=== PATIENT | female | born 1970 | race Two or more races ===

== ENCOUNTER 2016-12-12 07:50 | Emergency (ER) | payer SELFPAY ==
[~2016-12-12 07:50] MED LIST: ACET325T9 PO; NITR100C62 PO; ONDA4TAB10 SL; PNV1TABL25 PO; POTA10CA PO
--- NOTE | 2016-12-12 08:14 | PHYS DOC ---
Past Medical History Past Medical History: Diabetes-Type II, Hypertension Past Surgical History: Alcohol Use: None Drug Use: None Adult General Chief Complaint Chief Complaint: MULTIPLE COMPLAINTS [facility] HPI Patient is a 46 year old female presents emergency Department today with a complaint of generalized weakness, lightheadedness, headache and feeling as if she may pass out. Patient states this is been going on for the past 3 days. She also complains of a cough with chest wall pain when she coughs. She denies a productive cough or hemoptysis. She denies resting chest pain, exertional pain, palpitations, orthopnea or PND. She denies fevers or chills. She denies nausea, vomiting or diarrhea. Patient denies history of chronic headaches. She denies exposure to anyone with meningitis or encephalitis. She does have a history of hypertension and diabetes. She states that she does take medication at home for these, but does not check her blood sugar daily. [facility] for periodic checkup. She denies concerns for at this time. Last menstrual cycle was approximately 2 weeks ago. She denies dysuria, hematuria or flank pain. Information was gathered by patient who speaks broken Cook Islander as well as a female sql ssrs ssis developer who translates. Review of Systems Review of Systems Constitutional: Denies fever or chills [] Eyes: Denies change in visual acuity, redness, or eye pain [] HENT: Denies nasal congestion or sore throat [] Respiratory: Denies cough or shortness of breath [] Cardiovascular: No additional information not addressed in [facility] [] GI: Denies abdominal pain, nausea, vomiting, bloody stools or diarrhea [] : Denies dysuria or hematuria [] Musculoskeletal: Denies back pain or joint pain [] Integument: Denies rash or skin lesions [] Neurologic: Denies headache, focal weakness or sensory changes [] Endocrine: Denies polyuria or polydipsia [] Current Medications Current Medications Current Medications Medications (Trade) Dose Ordered Sig/Jessica Start Time Stop Time Status Last Admin Dose Admin Fentanyl Citrate (Fentanyl 2ml Vial) 50 mcg 1X ONCE 12/12/16 09:45 12/12/16 09:46 DC 12/12/16 10:19 50 MCG Hydralazine HCl (Apresoline) 10 mg 1X ONCE 12/12/16 08:30 12/12/16 08:31 DC 12/12/16 08:48 10 MG Ondansetron HCl (Zofran) 4 mg 1X ONCE 12/12/16 09:15 12/12/16 09:20 DC 12/12/16 09:22 4 MG Sodium Chloride (Iv Sodium Chloride 0.9% 500ml Bag) 500 ml @ 500 mls/hr 1X ONCE 12/12/16 08:15 12/12/16 09:14 DC 12/12/16 08:15 250 MLS/HR Sodium Chloride 10 ml 10 ml QSHIFT PRN 12/12/16 08:15 Allergies Allergies Allergies Coded Allergies Type Severity Reaction Last Updated Verified No Known Drug Allergies 02/24/14 No Physical Exam Physical Exam Constitutional: Patient is sitting in a high semi-Fowlers position no acute distress. Patient is hypertensive with a systolic pressure of 205. HENT: Normocephalic, atraumatic, bilateral external ears normal, oropharynx moist, no oral exudates, nose normal. Eyes: PERRLA, EOMI, conjunctiva normal, no discharge. [] Neck: Normal range of motion, no tenderness, supple, no stridor. Brudzinski's is negative. There is no cervical lymphadenopathy. Cardiovascular:Heart rate 68 with regular rhythm, no murmur Lungs & Thorax: There is no evidence of respiratory distress or respiratory fatigue. There is no posturing or sensory muscle use. Lungs are clear to auscultation bilaterally. Abdomen: Abdomen is soft and nondistended. There are normoactive bowel sounds throughout the abdomen. There is no palpable defect to the abdominal wall or pulsatile mass. There is no rebound or guarding. Skin: Warm, dry, no erythema, no rash. [] Back: No tenderness, no CVA tenderness. [] Extremities: No tenderness, no cyanosis, no clubbing, ROM intact, no edema. [] Neurologic: Alert and oriented X 3, cranial nerves II through XII are intact. Patient is able to perform rapid alternating movement and [id number] without difficulty. Romberg is negative for pronator drift. Patient ambulates with a steady, unaided gait. Psychologic: Affect normal, judgement normal, mood normal. [] Current Patient Data Vital Signs Vital Signs Date Time Temp Pulse Resp B/P Pulse Ox O2 Delivery O2 Flow Rate FiO2 12/12/16 10:19 18 97 Room Air 12/12/16 09:12 83 223/118 12/12/16 08:03 98.4 98.4 Lab Values Laboratory Tests Test 12/12/16 08:35 12/12/16 09:28 12/12/16 10:08 White Blood Count 8.6x10^3/uL (4.0-11.0) Red Blood Count 4.58x10^6/uL (3.50-5.40) Hemoglobin 11.7g/dL (12.0-15.5) L Hematocrit 36.2% (36.0-47.0) Mean Corpuscular Volume 79fL (79-100) Mean Corpuscular Hemoglobin 26pg (25-35) Mean Corpuscular Hemoglobin Concent 32g/dL (31-37) Red Cell Distribution Width 15.7% (11.5-14.5) H Platelet Count 310x10^3/uL (140-400) Neutrophils (%) (Auto) 62% (31-73) Lymphocytes (%) (Auto) 29% (24-48) Monocytes (%) (Auto) 3% (0-9) Eosinophils (%) (Auto) 4% (0-3) H Basophils (%) (Auto) 1% (0-3) Neutrophils # (Auto) 5.4x10^3uL (1.8-7.7) Lymphocytes # (Auto) 2.5x10^3/uL (1.0-4.8) Monocytes # (Auto) 0.3x10^3/uL (0.0-1.1) Eosinophils # (Auto) 0.4x10^3/uL (0.0-0.7) Basophils # (Auto) 0.1x10^3/uL (0.0-0.2) Sodium Level 137mmol/L (136-145) Potassium Level 3.9mmol/L (3.5-5.1) Chloride Level 102mmol/L (98-107) Carbon Dioxide Level 28mmol/L (21-32) Anion Gap 7 (6-14) Blood Urea Nitrogen 7mg/dL (7-20) Creatinine 0.8mg/dL (0.6-1.0) Estimated GFR (Cockcroft-Gault) 77.9 BUN/Creatinine Ratio 9 (6-20) Glucose Level 198mg/dL (70-99) H Calcium Level 8.9mg/dL (8.5-10.1) Total Bilirubin 0.4mg/dL (0.2-1.0) Aspartate Amino Transferase (AST) 26U/L (15-37) Alanine Aminotransferase (ALT) 30U/L (14-59) Alkaline Phosphatase 100U/L (46-116) Total Protein 8.3g/dL (6.4-8.2) H Albumin 3.4g/dL (3.4-5.0) Albumin/Globulin Ratio 0.7 (1.0-1.7) L POC Urine HCG, Qualitative Hcg negative (Negative) Urine Collection Type Unknown Urine Color Yellow Urine Clarity Clear Urine pH 8.0 Urine Specific [place] 1.010 Urine Protein Negativemg/dL (NEG-TRACE) Urine Glucose (UA) Negativemg/dL (NEG) Urine Ketones (Stick) Negativemg/dL (NEG) Urine Blood Large (NEG) Urine Nitrite Negative (NEG) Urine Bilirubin Negative (NEG) Urine Urobilinogen Dipstick 0.2mg/dL (0.2 mg/dL) Urine Leukocyte Esterase Trace (NEG) Urine RBC >40/HPF (0-2) Urine WBC 1-4/HPF (0-4) Urine Squamous Epithelial Cells Mod/LPF Urine Bacteria Moderate/HPF (0-FEW) Laboratory Tests 12/12/16 08:35 Laboratory Tests 12/12/16 08:35 EKG EKG Twelve-lead EKG was performed at 0 855 and shows a sinus rhythm with a rate of 60 bpm.. Goals 126, QRS durations 88 and QT duration is 432. There is some leftward axis deviation. There is no ST elevation or depression. Radiology/Procedures Radiology/Procedures [facility] [address] [place] [address] IMAGING REPORT Signed PATIENT: ROSI CONTRERAS ACCOUNT: [id number] : 1970 LOCATION: ER AGE: 46 SEX: F EXAM STATUS: REG ER ORD. PHYSICIAN: ESPINOZA MACDONALD REASON: cough, near syncope PROCEDURE: CHEST PA & LATERAL PA and lateral chest radiographs 12/12/2016. Clinical History: Near syncope.. PA and lateral digital radiographs of the chest were obtained. Comparison study is dated 08/19/2015. The cardiac and mediastinal silhouettes are within normal limits in size and configuration. No pulmonary infiltrate is seen. No pleural effusion or pneumothorax is noted. A 1 cm nodular opacity is seen in the left upper lobe. This likely represents a calcified granuloma. It is unchanged. The osseous structures are grossly intact. Impression: No acute abnormality is seen. DICTATED and SIGNED BY: CHELE FERGUSON MD DATE: 12/12/1615 CC: ESPINOZA MACDONALD; NO PCP; NON,STAFF ~ [facility] [address] [facility] [place], [place] [id number] IMAGING REPORT Signed PATIENT: ROSI CONTRERAS ACCOUNT: [id number] : 1970 LOCATION: ER AGE: 46 SEX: F EXAM STATUS: REG ER ORD. PHYSICIAN: ESPINOZA MACDONALD REASON: headache and hypertension PROCEDURE: CT HEAD WO CONTRAST CT scan of the head without contrast 12/12/2016 Clinical history: Headaches and hypertension. Technique: Unenhanced, contiguous, 5 mm axial sections were obtained through the head. One or more of the following individualized dose reduction techniques were utilized for this study: 1. Automated exposure control. 2. Adjustment of the mA and/or kV according to patient size. 3. Use of iterative reconstruction technique. Findings: Comparison study is dated 09/22/2007. The ventricles and sulci are within normal limits in size and configuration. Small calcifications are seen within the basal ganglia region, unchanged. No acute abnormality is seen. No extra-axial fluid collection is seen. No skull fracture is noted. Moderate mucosal thickening seen involving both maxillary sinuses. Mild to moderate mucosal thickening is seen involving the ethmoid air cells bilaterally. Impression: 1. No acute intracranial abnormality is seen. 2. Paranasal sinus disease as outlined above. DICTATED and SIGNED BY: CHELE FERGUSON MD DATE: 12/12/1651 CC: ESPINOZA MACDONALD; NO PCP; NON,STAFF ~ Course & Med Decision Making Course & Med Decision Making 1045: Patient reevaluated this time. Patient reports that she is pain-free. Awaiting UA results at this time. Dragon Disclaimer Dragon Disclaimer This electronic medical record was generated, in whole or in part, using a voice recognition dictation system. Departure Departure Impression: Primary Impression: Headache Additional Impressions: Urinary tract infection Hyperglycemia due to type 2 diabetes mellitus Disposition: HOME, SELF-CARE Condition: IMPROVED Referrals: NO PCP (PCP) Patient Instructions: General Headache Without Cause, How to Avoid Diabetes Problems, Urinary Tract Infection, [id number] Additional Instructions: 1. The CT scan of your head, chest x-ray today are normal. EKG today is normal. Laboratory test here today show a high blood sugar of 191 and a urinary tract infection. 2. Review the discharge instructions provided for self-care and reasons to return to the emergency department. 3. It is very important for you to take all medications as prescribed. It is very important for you to monitor your blood sugar at least 3 times a day. 4. [facility] Wednesday to schedule follow-up appointment to be seen by Wednesday or . Scripts Ciprofloxacin Hcl (Cipro)500 Mg Tablet1 Tab PO BID urinary tract infection #14 TAB Prov:ESPINOZA MACDONALD 12/12/16 Ondansetron (Zofran Odt)4 Mg Tab.rapdis1 Tab SL Q8HRS nausea and vomiting #10 TAB Prov:ESPINOZA MACDONALD 12/12/16 Butalb/Acetaminophen/Caffeine (Fioricet 50-300-40 Mg Capsule)1 Each Capsule1 Each PO PRN Q4HRS PRN HEADACHE #15 CAP Prov:ESPINOZA MACDONALD 12/12/16 Problem Qualifiers Primary Impression: Headache Headache type: unspecified Headache chronicity pattern: unspecified pattern Intractability: not intractable Qualified Code: R51 - Headache Additional Impressions: Urinary tract infection Urinary tract infection type: acute cystitis Hematuria presence: with hematuria Qualified Code: N30.01 - Acute cystitis with hematuria Hyperglycemia due to type 2 diabetes mellitus Diabetes mellitus terminal clerk insulin use: with terminal clerk use Qualified Code: E11.65 - Type 2 diabetes mellitus with hyperglycemia ESPINOZA MACDONALD Dec 12, 2016 08:14
[2016-12-12] MEDS ORDERED: IV NORMAL SALINE 500ML BAG 500 ML IV ONE (08:15)
[2016-12-12] MEDS ORDERED: 0.9 % SODIUM CHLORIDE 10 ML DISP.SYRIN. IV PRN (08:15)
[2016-12-12] MEDS ORDERED: hydrALAZINE 20 MG/ML VIAL. IVP ONE (08:30)
[2016-12-12 08:48] LABS: BASO # 0.1 x10^3/uL (0.0-0.2); BASO % 1 % (0-3); EOS % 4 % (0-3); HEMATOCRIT 36.2 % (36.0-47.0); HEMOGLOBIN 11.7 g/dL (12.0-15.5); LYMPH # 2.5 x10^3/uL (1.0-4.8); LYMPH % 29 % (24-48); MEAN CORPUSCULAR HEMOGLOBIN 26 pg (25-35); MEAN CORPUSCULAR HGB CONC 32 g/dL (31-37); MEAN CORPUSCULAR VOLUME 79 fL (79-100); MONO % 3 % (0-9); NEUT % 62 % (31-73); PLATELET COUNT 310 x10^3/uL (140-400); RED BLOOD COUNT 4.58 x10^6/uL (3.50-5.40); RED CELL DISTRIBUTION WIDTH 15.7 % (11.5-14.5); WHITE BLOOD COUNT 8.6 x10^3/uL (4.0-11.0)
[2016-12-12 08:58] LABS: CALCIUM 8.9 mg/dL (8.5-10.1); CREATININE 0.8 mg/dL (0.6-1.0); GFR 77.9; POTASSIUM 3.9 mmol/L (3.5-5.1)
[2016-12-12 09:04] LABS: ALBUMIN 3.4 g/dL (3.4-5.0); ALBUMIN/GLOBULIN RATIO 0.7 (1.0-1.7); TOTAL BILIRUBIN 0.4 mg/dL (0.2-1.0); TOTAL PROTEIN 8.3 g/dL (6.4-8.2)
[2016-12-12] MEDS ORDERED: ONDANSETRON PF 4 MG/2 ML VIAL. IV ONE (09:15)
--- NOTE | 2016-12-12 09:19 | RAD ---
PA and lateral chest radiographs 12/12/2016. Clinical History: Near syncope.. PA and lateral digital radiographs of the chest were obtained. Comparison study is dated 08/19/2015. The cardiac and mediastinal silhouettes are within normal limits in size and configuration. No pulmonary infiltrate is seen. No pleural effusion or pneumothorax is noted. A 1 cm nodular opacity is seen in the left upper lobe. This likely represents a calcified granuloma. It is unchanged. The osseous structures are grossly intact. Impression: No acute abnormality is seen.
[2016-12-12] MEDS ORDERED: FENTANYL PF 100 MCG/2 ML VIAL. IV ONE (09:45)
--- NOTE | 2016-12-12 09:57 | RAD ---
CT scan of the head without contrast 12/12/2016 Clinical history: Headaches and hypertension. Technique: Unenhanced, contiguous, 5 mm axial sections were obtained through the head. One or more of the following individualized dose reduction techniques were utilized for this study: 1. Automated exposure control. 2. Adjustment of the mA and/or kV according to patient size. 3. Use of iterative reconstruction technique. Findings: Comparison study is dated 09/22/2007. The ventricles and sulci are within normal limits in size and configuration. Small calcifications are seen within the basal ganglia region, unchanged. No acute abnormality is seen. No extra-axial fluid collection is seen. No skull fracture is noted. Moderate mucosal thickening seen involving both maxillary sinuses. Mild to moderate mucosal thickening is seen involving the ethmoid air cells bilaterally. Impression: 1. No acute intracranial abnormality is seen. 2. Paranasal sinus disease as outlined above.
[2016-12-12 10:53] LABS: BILIRUBIN,URINE NEGATIVE (NEG); GLUCOSE,URINE NEGATIVE (NEG); NITRITE,URINE NEGATIVE (NEG); PROTEIN,URINE NEGATIVE (NEG-TRACE); UROBILINOGEN,URINE 0.2 mg/dL (0.2 mg/dL)
[2016-12-12 11:01] LABS: BACTERIA,URINE MODERATE /HPF (0-FEW); RBC,URINE >40 /HPF (0-2); SQUAMOUS EPITHELIAL CELL,UR MOD /LPF
[2016-12-12] MEDS ORDERED: ONDA4TAB10 SL (11:09)
[2016-12-12] MEDS ORDERED: BUTA1CAP29 PO (11:09)
[2016-12-12] MEDS ORDERED: CIPR500T94 PO (11:09)
[2016-12-12 11:15] VITALS: BP 150/70
--- NOTE | 2016-12-12 12:09 | EKG ---
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
--- NOTE | 2016-12-14 17:42 | VNOTE ---
CALL BACK NOTE CALL BACK Microbiology 12/12/16 Urine Culture - Final, Complete 12/12/16 Urine Culture Result 1 (FELIX) - Final, Complete 12/12/16 Antimicrobic Susceptibility - Final, Complete Attempted to contact the patient at the number provided by registration. There was no answer message was left for patient to call in regards to her positive urine culture. She was placed on Cipro at appears that the Escherichia coli was greater than 100,000 and his resistance to the Cipro. KELLEY ROD TECHNICIAN TERMINAL AND REPEATER Dec 14, 2016 17:42
--- NOTE | 2016-12-15 17:00 | VNOTE ---
CALL BACK NOTE CALL BACK Microbiology 12/12/16 Urine Culture - Final, Complete 12/12/16 Urine Culture Result 1 (FELIX) - Final, Complete 12/12/16 Antimicrobic Susceptibility - Final, Complete Patient has a positive urine culture was put on cipro and is resistant, this is the second time we're trying to get a hold of her, I spoke to the nursing today left a message to ask patient to call us back. Report given to the nursing care partner to contact patient. PAUL ARAUJO APRN Dec 15, 2016 17:00
== END 2016-12-12 11:24 | disposition home or self-care (01) ==
LOC: ER 07:50
DX: R51 Headache (principal); N30.01 Acute cystitis with hematuria; E11.65 Type 2 diabetes mellitus with hyperglycemia; R05 Cough; R07.89 Other chest pain; I10 Essential (primary) hypertension; Z79.899 Other long term (current) drug therapy
CPT/HCPCS: 36415; 70450; 71020; 80053; 81001; 81025; 82947; 85027; 87086; 93005; 96361; 96374; 96375; 99285; J0360; J2405; J3010; J7040

== ENCOUNTER 2017-06-09 08:51 | Emergency (ER) | payer SELFPAY ==
[~2017-06-09] VITALS: Ht 162.6 cm; Wt 86.2 kg
[~2017-06-09 08:51] MED LIST changes: +BUTA1CAP29 PO; +CIPR500T94 PO; -POTA10CA PO; +POTASSIUM CHLO10 MEQ PO
[2017-06-09 09:33] LABS: BILIRUBIN,URINE NEGATIVE (NEG); GLUCOSE,URINE 500 mg/dL (NEG); NITRITE,URINE NEGATIVE (NEG); PROTEIN,URINE NEGATIVE (NEG-TRACE); UROBILINOGEN,URINE 0.2 mg/dL (0.2 mg/dL)
[2017-06-09] MEDS ORDERED: ONDANSETRON ODT 4 MG TAB.RAPDIS. PO ONE (09:45)
[2017-06-09 09:56] LABS: BACTERIA,URINE 0 /HPF (0-FEW); RBC,URINE 0 /HPF (0-2); SQUAMOUS EPITHELIAL CELL,UR MOD /LPF
--- NOTE | 2017-06-09 10:56 | PHYS DOC ---
Past Medical History Past Medical History: Diabetes-Type II, Hypertension Past Surgical History: , Other Alcohol Use: None Drug Use: None Adult General Chief Complaint Chief Complaint: ABDOMINAL PAIN HPI HPI Patient is a 46 year old female who presents with diffuse abdominal pain that started yesterday, intermittent in nature, nausea and dysuria. Abdominal pain changes with passing gas and having bowel movements. No vag dc reported. Review of Systems Review of Systems Constitutional: Denies fever or chills [] Eyes: Denies change in visual acuity, redness, or eye pain [] HENT: Denies nasal congestion or sore throat [] Respiratory: Denies cough or shortness of breath [] Cardiovascular: No additional information not addressed in HPI [] GI: Denies abdominal pain, nausea, vomiting, bloody stools or diarrhea [] : Denies dysuria or hematuria [] Musculoskeletal: Denies back pain or joint pain [] Integument: Denies rash or skin lesions [] Neurologic: Denies headache, focal weakness or sensory changes [] Endocrine: Denies polyuria or polydipsia [] Current Medications Current Medications Current Medications Medications (Trade) Dose Ordered Sig/Jessica Start Time Stop Time Status Last Admin Dose Admin Ketorolac Tromethamine (Toradol) 30 mg 1X ONCE 06/09/17 12:30 06/09/17 12:31 DC Ondansetron HCl (Zofran Odt) 4 mg 1X ONCE 06/09/17 09:45 06/09/17 09:46 DC 06/09/17 10:35 4 MG Allergies Allergies Allergies Coded Allergies Type Severity Reaction Last Updated Verified No Known Drug Allergies 02/24/14 No Physical Exam Physical Exam Constitutional: Well developed, well nourished, no acute distress, non-toxic appearance. [] HENT: Normocephalic, atraumatic, bilateral external ears normal, oropharynx moist, no oral exudates, nose normal. [] Eyes: PERRLA, EOMI, conjunctiva normal, no discharge. [] Neck: Normal range of motion, no tenderness, supple, no stridor. [] Cardiovascular:Heart rate regular rhythm, no murmur [] Lungs & Thorax: Bilateral breath sounds clear to auscultation [] Abdomen: Bowel sounds normal, soft, ttp over R adnexa, neg mcburneys no masses, no pulsatile masses.ttp over R adnexa : mild discharge, no CMT, R adnexal ttp, no mass noted Skin: Warm, dry, no erythema, no rash. [] Back: No tenderness, no CVA tenderness. [] Extremities: No tenderness, no cyanosis, no clubbing, ROM intact, no edema. [] Neurologic: Alert and oriented X 3, normal motor function, normal sensory function, no focal deficits noted. [] Psychologic: Affect normal, judgement normal, mood normal. [] Current Patient Data Vital Signs Vital Signs Date Time Temp Pulse Resp B/P (MAP) Pulse Ox O2 Delivery O2 Flow Rate FiO2 06/09/17 09:21 98.4 67 16 166/81 (109) 97 Room Air 98.4 Lab Values Laboratory Tests Test 06/09/17 09:10 06/09/17 09:13 06/09/17 09:34 06/09/17 10:40 Urine Collection Type Unknown Urine Color Yellow Urine Clarity Clear Urine pH 6.0 Urine Specific [place] 1.010 Urine Protein Negative mg/dL (NEG-TRACE) Urine Glucose (UA) 500 mg/dL (NEG) Urine Ketones (Stick) Negative mg/dL (NEG) Urine Blood Negative (NEG) Urine Nitrite Negative (NEG) Urine Bilirubin Negative (NEG) Urine Urobilinogen Dipstick 0.2 mg/dL (0.2 mg/dL) Urine Leukocyte Esterase Negative (NEG) Urine RBC 0 /HPF (0-2) Urine WBC 1-4 /HPF (0-4) Urine Squamous Epithelial Cells Mod /LPF Urine Bacteria 0 /HPF (0-FEW) POC Urine HCG, Qualitative Hcg negative (Negative) Glucose (Fingerstick) 261 mg/dL (70-99) H White Blood Count 9.0 x10^3/uL (4.0-11.0) Red Blood Count 4.96 x10^6/uL (3.50-5.40) Hemoglobin 13.3 g/dL (12.0-15.5) Hematocrit 40.5 % (36.0-47.0) Mean Corpuscular Volume 82 fL (79-100) Mean Corpuscular Hemoglobin 27 pg (25-35) Mean Corpuscular Hemoglobin Concent 33 g/dL (31-37) Red Cell Distribution Width 14.7 % (11.5-14.5) H Platelet Count 255 x10^3/uL (140-400) Neutrophils (%) (Auto) 50 % (31-73) Lymphocytes (%) (Auto) 38 % (24-48) Monocytes (%) (Auto) 4 % (0-9) Eosinophils (%) (Auto) 8 % (0-3) H Basophils (%) (Auto) 1 % (0-3) Neutrophils # (Auto) 4.5 x10^3uL (1.8-7.7) Lymphocytes # (Auto) 3.4 x10^3/uL (1.0-4.8) Monocytes # (Auto) 0.3 x10^3/uL (0.0-1.1) Eosinophils # (Auto) 0.7 x10^3/uL (0.0-0.7) Basophils # (Auto) 0.1 x10^3/uL (0.0-0.2) Test 06/09/17 10:59 POC Hemoglobin 14.3 g/dL (12-15) POC Hematocrit 42 % (36-40) H POC Sodium 138 mmol/L (135-145) POC Potassium 4.1 mmol/L (3.5-5.0) POC Chloride 98 mmol/L (98-110) POC Total CO2 30 mmol/L (23-32) Anion Gap 15 mmol/L (6-14) H POC Blood Urea Nitrogen 14 mg/dL (8-26) POC Creatinine 0.6 mg/dL (0.5-1.4) Glucose Level 253 mg/dL (70-99) H POC Ionized Calcium (Rico) 1.23 mmol/L (1.13-1.32) Laboratory Tests 06/09/17 10:40 Laboratory Tests 06/09/17 10:59 Microbiology 06/09/17 Wet Prep - Final, Complete EKG EKG [] Radiology/Procedures Radiology/Procedures [] Course & Med Decision Making Course & Med Decision Making Pertinent Labs and Imaging studies reviewed. (See chart for details) Pt given zofran odt. Workup showed ovarian cyst, likely causing her pain, and BV, likely contributing to her dysuria. Pt will be treated with flagyl, ibuprofen, referred to f/u. RX for both given, pt given PCP referral sheet. Dragon Disclaimer Dragon Disclaimer This electronic medical record was generated, in whole or in part, using a voice recognition dictation system. Departure Departure Impression: Primary Impression: Bacterial vaginosis Additional Impressions: Ovarian cyst Hyperglycemia due to type 2 diabetes mellitus Disposition: HOME, SELF-CARE Condition: IMPROVED Referrals: NO PCP (PCP) Scripts Metronidazole (FLAGYL) 500 Mg Tablet 1 TAB PO BID, #14 TAB Prov: KAYLI CALVIN MD 06/09/17 Ibuprofen (IBUPROFEN) 800 Mg Tablet 800 MG PO PRN TID Y for PAIN, #20 TAB take with food or milk to avoid upsetting stomach Prov: KAYLI CALVIN MD 06/09/17 Problem Qualifiers KAYLI CALVIN MD Jun 09, 2017 10:56
[2017-06-09 11:05] LABS: BASO # 0.1 x10^3/uL (0.0-0.2); BASO % 1 % (0-3); EOS % 8 % (0-3); HEMATOCRIT 40.5 % (36.0-47.0); HEMOGLOBIN 13.3 g/dL (12.0-15.5); LYMPH # 3.4 x10^3/uL (1.0-4.8); LYMPH % 38 % (24-48); MEAN CORPUSCULAR HEMOGLOBIN 27 pg (25-35); MEAN CORPUSCULAR HGB CONC 33 g/dL (31-37); MEAN CORPUSCULAR VOLUME 82 fL (79-100); MONO % 4 % (0-9); NEUT % 50 % (31-73); PLATELET COUNT 255 x10^3/uL (140-400); RED BLOOD COUNT 4.96 x10^6/uL (3.50-5.40); RED CELL DISTRIBUTION WIDTH 14.7 % (11.5-14.5)
[2017-06-09 12:05] LABS: POTASSIUM ISTAT 4.1 mmol/L (3.5-5.0)
--- NOTE | 2017-06-09 12:10 | RAD ---
Indication bilateral adnexal pain. Initially transabdominal scans were obtained. The initial transabdominal scans were supplemented with transvaginal scans. The hCG status has been reported as negative The uterus measures approximately an 0.6 x 5.3 x 6.3 cm. The endometrium is unremarkable. There is a hypoechoic mass measuring approximately 3 cm seen associated with the right ovary viable with a dominant cyst. Some flow is seen in the right ovary. The left ovary was not seen. No adnexal mass or free fluid was seen. IMPRESSION: Unremarkable uterus and endometrium. Dominant cyst associated with the right ovary. Left ovary not seen
[2017-06-09] MEDS ORDERED: METR500T PO (12:24)
[2017-06-09] MEDS ORDERED: IBUP-1060 PO (12:24)
[2017-06-09] MEDS ORDERED: KETOROLAC 30 MG/ML INJ. IV ONE (12:30)
[2017-06-09 12:57] VITALS: BP 155/73
== END 2017-06-09 13:04 | disposition home or self-care (01) ==
LOC: ER 08:51
DX: N76.0 Acute vaginitis (principal); N83.201 Unspecified ovarian cyst, right side; E11.65 Type 2 diabetes mellitus with hyperglycemia; I10 Essential (primary) hypertension
CPT/HCPCS: 36415; 76830; 76856; 80047; 81001; 81025; 82962; 85025; 87491; 87591; 96374; 99285; J1885; Q0111; Q0162

== ENCOUNTER 2017-08-24 18:21 | Emergency (ER) | payer SELFPAY ==
[2017-08-24 18:59] LABS: ADD MAN DIFF? NO
[2017-08-24 19:02] LABS: BASO # 0.1 x10^3/uL (0.0-0.2); BASO % 1 % (0-3); EOS # 0.3 x10^3/uL (0.0-0.7); EOS % 4 % (0-3); HEMATOCRIT 41.3 % (36.0-47.0); HEMOGLOBIN 13.4 g/dL (12.0-15.5); LYMPH # 3.4 x10^3/uL (1.0-4.8); LYMPH % 42 % (24-48); MEAN CORPUSCULAR HEMOGLOBIN 27 pg (25-35); MEAN CORPUSCULAR HGB CONC 33 g/dL (31-37); MEAN CORPUSCULAR VOLUME 83 fL (79-100); MONO # 0.3 x10^3/uL (0.0-1.1); MONO % 4 % (0-9); NEUT % 49 % (31-73); PLATELET COUNT 303 x10^3/uL (140-400); RED BLOOD COUNT 4.99 x10^6/uL (3.50-5.40); RED CELL DISTRIBUTION WIDTH 13.6 % (11.5-14.5); WHITE BLOOD COUNT 8.2 x10^3/uL (4.0-11.0)
[2017-08-24 19:05] LABS: BILIRUBIN,URINE NEGATIVE (NEG); CLARITY,URINE CLOUDY; COLOR,URINE YELLOW; GLUCOSE,URINE >=1000 mg/dL (NEG); NITRITE,URINE NEGATIVE (NEG); PH,URINE 6.5; PROTEIN,URINE NEGATIVE (NEG-TRACE)
[2017-08-24 19:05] LABS: URINE HCG POC HCG NEGATIVE (Negative)
[2017-08-24 19:06] LABS: POC GLUCOSE 268 mg/dL (70-99)
[2017-08-24] MEDS: ONDANSETRON PF 4 MG/2 ML VIAL. IV (19:08)
[2017-08-24] MEDS: IV NORMAL SALINE 1000ML BAG 1,000 ML IV (19:08)
[2017-08-24] MEDS: hydrALAZINE 20 MG/ML VIAL. IVP ×2 (19:15→19:32)
[2017-08-24 19:17] LABS: ANION GAP 9 (6-14); BLOOD UREA NITROGEN 11 mg/dL (7-20); BUN/CREATININE RATIO 16 (6-20); CARBON DIOXIDE 29 mmol/L (21-32); CHLORIDE 99 mmol/L (98-107); CREATININE 0.7 mg/dL (0.6-1.0); GFR 90.5; GLUCOSE 298 mg/dL (70-99); POTASSIUM 3.6 mmol/L (3.5-5.1); SODIUM 137 mmol/L (136-145)
[2017-08-24 19:18] LABS: BACTERIA,URINE MODERATE /HPF (0-FEW); RBC,URINE OCC /HPF (0-2); SQUAMOUS EPITHELIAL CELL,UR MOD /LPF
[2017-08-24 19:23] LABS: ALBUMIN 3.5 g/dL (3.4-5.0); ALBUMIN/GLOBULIN RATIO 0.6 (1.0-1.7); ALK PHOS 117 U/L (46-116); ALT (SGPT) 66 U/L (14-59); AST (SGOT) 50 U/L (15-37); TOTAL BILIRUBIN 0.3 mg/dL (0.2-1.0); TOTAL PROTEIN 9.1 g/dL (6.4-8.2)
== END 2017-08-24 22:40 | disposition home or self-care (01) ==
LOC: ER 18:21
DX: E11.65 Type 2 diabetes mellitus with hyperglycemia (principal); I10 Essential (primary) hypertension
CPT/HCPCS: 36415; 71045; 76705; 80053; 81001; 81025; 82962; 85025; 87086; 87186; 93005; 96361; 96374; 99285-25; J0360; J2405; J7030

== ENCOUNTER 2019-01-11 16:28 | Emergency (ER) | payer SELFPAY ==
[~2019-01-11] VITALS: Ht 175.3 cm; Wt 92.1 kg
[~2019-01-11 16:28] MED LIST changes: +IBUP-1060 PO; +INSU100I17 SQ; +INSU100I27 SQ; +LISI-130 PO; +METF500T16 PO; +METR500T PO; +POTA10TA12 PO; -POTASSIUM CHLO10 MEQ PO
[2019-01-11 17:28] LABS: BASO # 0.1 x10^3/uL (0.0-0.2); BASO % 1 % (0-3); EOS # 0.1 x10^3/uL (0.0-0.7); EOS % 1 % (0-3); HEMATOCRIT 40.9 % (36.0-47.0); HEMOGLOBIN 13.6 g/dL (12.0-15.5); LYMPH # 2.2 x10^3/uL (1.0-4.8); LYMPH % 25 % (24-48); MEAN CORPUSCULAR HEMOGLOBIN 28 pg (25-35); MEAN CORPUSCULAR HGB CONC 33 g/dL (31-37); MEAN CORPUSCULAR VOLUME 83 fL (79-100); MONO # 0.3 x10^3/uL (0.0-1.1); MONO % 4 % (0-9); NEUT # 6.2 x10^3uL (1.8-7.7); NEUT % 70 % (31-73); PLATELET COUNT 268 x10^3/uL (140-400); RED BLOOD COUNT 4.93 x10^6/uL (3.50-5.40); RED CELL DISTRIBUTION WIDTH 13.1 % (11.5-14.5); WHITE BLOOD COUNT 8.9 x10^3/uL (4.0-11.0)
[2019-01-11] MEDS: IV NORMAL SALINE 1000ML BAG 1,000 ML IV ONE ×2 (17:28→18:31)
--- NOTE | 2019-01-11 17:30 | RAD ---
Single view chest dated 01/11/2019. Comparison made to 12/05/2017. CLINICAL INDICATION: Headache and dizziness. FINDINGS: single upright portable exam performed. Heart and mediastinal contours are stable. Lungs are somewhat hypoinflated but otherwise clear. No consolidation or pleural effusion. A vague nodules on the left that are unchanged likely representing granuloma. IMPRESSION: No acute radiographic abnormality. Stable findings compared to 12/05/2017. Electronically signed by: Dannie Becerra MD (01/11/2019 5:28 PM) [facility]
[2019-01-11] MEDS: ONDANSETRON PF 4 MG/2 ML VIAL. IV ONE (17:31)
[2019-01-11] MEDS: MECLIZINE HCL 12.5 MG TABLET. PO ONE (17:31)
[2019-01-11 17:37] LABS: CALCIUM 9.4 mg/dL (8.5-10.1); CREATININE 0.9 mg/dL (0.6-1.0); GFR 67.4; POTASSIUM 3.9 mmol/L (3.5-5.1); PROTHROMBIN TIME PATIENT 12.9 SEC (11.7-14.0)
[2019-01-11 17:42] LABS: ALBUMIN 3.4 g/dL (3.4-5.0); ALBUMIN/GLOBULIN RATIO 0.7 (1.0-1.7); MAGNESIUM 1.7 mg/dL (1.8-2.4); TOTAL BILIRUBIN 0.3 mg/dL (0.2-1.0); TOTAL PROTEIN 8.5 g/dL (6.4-8.2)
[2019-01-11 17:51] LABS: CREATINE KINASE 62 U/L (26-192)
--- NOTE | 2019-01-11 17:58 | RAD ---
CT head without contrast dated 01/11/2019. Comparison made to 12/12/2016. CLINICAL INDICATION: Headache and dizziness. TECHNIQUE: Contiguous axial imaging the head was performed from skull base to vertex. No contrast administered. One or more of the following individualized dose reduction techniques were utilized for this examination: 1. Automated exposure control 2. Adjustment of the mA and/or kV according to patient size 3. Use of iterative reconstruction technique. FINDINGS: Ventricles and sulci are within normal limits for age. No midline shift or mass effect. Brain parenchyma is of normal attenuation. No hemorrhage or extra axial collection. Posterior fossa and brainstem unremarkable. Visualized paranasal sinuses and mastoid air cells are clear. No apparent calvarial abnormality. IMPRESSION: No evidence of acute intracranial abnormality. Electronically signed by: Dannie Becerra MD (01/11/2019 5:55 PM) [facility]
[2019-01-11] MEDS: INSULIN REGULAR 100 UNIT/ML 3ML VIAL. IV ONE (18:28)
[2019-01-11] MEDS: KETOROLAC 30 MG/ML VIAL. IV ONE (18:34)
[2019-01-11] MEDS: PROCHLORPERAZINE 10 MG/2 ML VIAL. IV ONE (18:35)
--- NOTE | 2019-01-11 18:56 | PHYS DOC ---
Past Medical History Past Medical History: Diabetes-Type II, Hypertension Additional Past Medical Histor: Prescribed PO meds for HTN and DM but has been non compliat with these. Past Surgical History: Alcohol Use: None Drug Use: None Adult General Chief Complaint Chief Complaint: DIZZY/LIGHT HEADED HPI HPI Patient is a 48 year old female with history of diabetes type 2, hypertension, who presents to the ED today complaining of a mild left-sided headache intermittently since yesterday. Patient is also complaining of episodes of dizziness worse when she is up. She states she vomited yesterday. Denies any vomiting today. Denies any chest pain or shortness of breath. Denies this being the worst headache in her life. She states she's had similar symptoms before. Review of Systems Review of Systems Constitutional: Denies fever or chills [] Eyes: Denies change in visual acuity, redness, or eye pain [] HENT: Denies nasal congestion or sore throat [] Respiratory: Denies cough or shortness of breath [] Cardiovascular: No additional information not addressed in HPI [] GI: Reports of vomiting. Denies abdominal pain, bloody stools or diarrhea [] : Denies dysuria or hematuria [] Musculoskeletal: Denies back pain or joint pain [] Integument: Denies rash or skin lesions [] Neurologic: Reports left-sided headache, dizziness, denies focal weakness or sensory changes [] All other systems were reviewed and found to be within normal limits, except as documented in this note. Current Medications Current Medications Current Medications Medications (Trade) Dose Ordered Sig/Jessica Start Time Stop Time Status Last Admin Dose Admin Insulin Human Regular (HumuLIN R VIAL) 10 unit 1X ONCE 01/11/19 18:00 01/11/19 18:01 DC 01/11/19 18:28 10 UNIT Ketorolac Tromethamine (Toradol 30mg Vial) 30 mg 1X ONCE 01/11/19 18:15 01/11/19 18:16 DC 01/11/19 18:34 30 MG Meclizine HCl (Antivert) 25 mg 1X ONCE 01/11/19 17:15 01/11/19 17:16 DC 01/11/19 17:31 25 MG Ondansetron HCl (Zofran) 4 mg 1X ONCE 01/11/19 17:15 01/11/19 17:16 DC 01/11/19 17:31 4 MG Prochlorperazine Edisylate (Compazine) 10 mg 1X ONCE 01/11/19 18:15 01/11/19 18:16 DC 01/11/19 18:35 10 MG Sodium Chloride 1,000 ml @ 1,000 mls/hr 1X ONCE 01/11/19 18:00 01/11/19 18:59 DC 01/11/19 18:31 1,000 MLS/HR Allergies Allergies Allergies Coded Allergies Type Severity Reaction Last Updated Verified No Known Drug Allergies 02/24/14 No Physical Exam Physical Exam Constitutional: Well developed, well nourished, no acute distress, non-toxic appearance. [] HENT: Normocephalic, atraumatic, bilateral external ears normal, oropharynx moist, no oral exudates, nose normal. [] Eyes: PERRLA, EOMI, conjunctiva normal, no discharge. [] Neck: Normal range of motion, no tenderness, supple, no stridor. [] Cardiovascular:Heart rate regular rhythm, no murmur [] Lungs & Thorax: Bilateral breath sounds clear to auscultation [] Abdomen: Bowel sounds normal, soft, no tenderness, no masses, no pulsatile masses. [] Skin: Warm, dry, no erythema, no rash. [] Back: No tenderness, no CVA tenderness. [] Extremities: No tenderness, no cyanosis, no clubbing, ROM intact, no edema. [] Neurologic: Alert and oriented X 3, normal motor function, normal sensory f unction, no focal deficits noted. Cranial nerves II through XII intact Psychologic: Affect normal, judgement normal, mood normal. [] Current Patient Data Vital Signs Vital Signs Date Time Temp Pulse Resp B/P (MAP) Pulse Ox O2 Delivery O2 Flow Rate FiO2 01/11/19 17:10 98.1 68 20 145/88 (107) 98 Room Air 98.1 Lab Values Laboratory Tests Test 01/11/19 17:20 01/11/19 19:00 White Blood Count 8.9 x10^3/uL (4.0-11.0) Red Blood Count 4.93 x10^6/uL (3.50-5.40) Hemoglobin 13.6 g/dL (12.0-15.5) Hematocrit 40.9 % (36.0-47.0) Mean Corpuscular Volume 83 fL (79-100) Mean Corpuscular Hemoglobin 28 pg (25-35) Mean Corpuscular Hemoglobin Concent 33 g/dL (31-37) Red Cell Distribution Width 13.1 % (11.5-14.5) Platelet Count 268 x10^3/uL (140-400) Neutrophils (%) (Auto) 70 % (31-73) Lymphocytes (%) (Auto) 25 % (24-48) Monocytes (%) (Auto) 4 % (0-9) Eosinophils (%) (Auto) 1 % (0-3) Basophils (%) (Auto) 1 % (0-3) Neutrophils # (Auto) 6.2 x10^3uL (1.8-7.7) Lymphocytes # (Auto) 2.2 x10^3/uL (1.0-4.8) Monocytes # (Auto) 0.3 x10^3/uL (0.0-1.1) Eosinophils # (Auto) 0.1 x10^3/uL (0.0-0.7) Basophils # (Auto) 0.1 x10^3/uL (0.0-0.2) Prothrombin Time 12.9 SEC (11.7-14.0) Prothrombin Time INR 1.0 (0.8-1.1) Sodium Level 134 mmol/L (136-145) L Potassium Level 3.9 mmol/L (3.5-5.1) Chloride Level 98 mmol/L (98-107) Carbon Dioxide Level 27 mmol/L (21-32) Anion Gap 9 (6-14) Blood Urea Nitrogen 10 mg/dL (7-20) Creatinine 0.9 mg/dL (0.6-1.0) Estimated GFR (Cockcroft-Gault) 67.4 BUN/Creatinine Ratio 11 (6-20) Glucose Level 416 mg/dL (70-99) H Calcium Level 9.4 mg/dL (8.5-10.1) Magnesium Level 1.7 mg/dL (1.8-2.4) L Total Bilirubin 0.3 mg/dL (0.2-1.0) Aspartate Amino Transferase (AST) 24 U/L (15-37) Alanine Aminotransferase (ALT) 35 U/L (14-59) Alkaline Phosphatase 124 U/L (46-116) H Creatine Kinase 62 U/L (26-192) Creatine Kinase MB (Mass) < 0.5 ng/mL (0.0-3.6) Creatine Kinase MB Relative Index 0.8 % (0-4) Troponin I Quantitative < 0.017 ng/mL (0.000-0.055) GR-Qqk-O-Type Natriuretic Peptide 35 pg/mL (0-124) Total Protein 8.5 g/dL (6.4-8.2) H Albumin 3.4 g/dL (3.4-5.0) Albumin/Globulin Ratio 0.7 (1.0-1.7) L Urine Collection Type Unknown Urine Color Yellow Urine Clarity Clear Urine pH 6.0 Urine Specific [place] >=1.030 Urine Protein Negative mg/dL (NEG-TRACE) Urine Glucose (UA) >=1000 mg/dL (NEG) Urine Ketones (Stick) Negative mg/dL (NEG) Urine Blood Negative (NEG) Urine Nitrite Negative (NEG) Urine Bilirubin Negative (NEG) Urine Urobilinogen Dipstick 0.2 mg/dL (0.2 mg/dL) Urine Leukocyte Esterase Negative (NEG) Urine RBC 0 /HPF (0-2) Urine WBC >40 /HPF (0-4) Urine Squamous Epithelial Cells Few /LPF Urine Bacteria 0 /HPF (0-FEW) Urine Opiates Screen Neg (NEG) Urine Methadone Screen Neg (NEG) Urine Barbiturates Neg (NEG) Urine Phencyclidine Screen Neg (NEG) Urine Amphetamine/Methamphetamine Pos (NEG) Urine Benzodiazepines Screen Neg (NEG) Urine Cocaine Screen Neg (NEG) Urine Cannabinoids Screen Neg (NEG) Urine Ethyl Alcohol Neg (NEG) Laboratory Tests 01/11/19 17:20 Laboratory Tests 01/11/19 17:20 EKG EKG Interpreted by Dr. Ojeda sinus rhythm HR 68 no STEMI[] Radiology/Procedures Radiology/Procedures []PROCEDURE: PORTABLE CHEST 1V Single view chest dated 01/11/2019. Comparison made to 12/05/2017. CLINICAL INDICATION: Headache and dizziness. FINDINGS: single upright portable exam performed. Heart and mediastinal contours are stable. Lungs are somewhat hypoinflated but otherwise clear. No consolidation or pleural effusion. A vague nodules on the left that are unchanged likely representing granuloma. IMPRESSION: No acute radiographic abnormality. Stable findings compared to 12/05/2017. Electronically signed by: Dannie Becerra MD (01/11/2019 5:28 PM) [facility] DICTATED and SIGNED BY: DANNIE BECERRA MD DATE: 01/11/19 9455 PROCEDURE: CT HEAD WO CONTRAST CT head without contrast dated 01/11/2019. Comparison made to 12/12/2016. CLINICAL INDICATION: Headache and dizziness. TECHNIQUE: Contiguous axial imaging the head was performed from skull base to vertex. No contrast administered. One or more of the following individualized dose reduction techniques were utilized for this examination: 1. Automated exposure control 2. Adjustment of the mA and/or kV according to patient size 3. Use of iterative reconstruction technique. FINDINGS: Ventricles and sulci are within normal limits for age. No midline shift or mass effect. Brain parenchyma is of normal attenuation. No hemorrhage or extra axial collection. Posterior fossa and brainstem unremarkable. Visualized paranasal sinuses and mastoid air cells are clear. No apparent calvarial abnormality. IMPRESSION: No evidence of acute intracranial abnormality. Electronically signed by: Dannie Becerra MD (01/11/2019 5:55 PM) [facility] DICTATED and SIGNED BY: DANNIE BECERRA MD DATE: 01/11/19 5129 Course & Med Decision Making Course & Med Decision Making Pertinent Labs and Imaging studies reviewed. (See chart for details) This is a 48-year-old female patient presented to the ED today with dizziness, headache, lightheadedness, symptoms worse when she is up and moving. Also complaining of an episode of vomiting yesterday. CT of the head, chest x-ray -negative for any acute findings. EKG is negative. CBC with no acute findings, CMP with glucose of 416, anion gap is normal. Patient has history of uncontrolled diabetes. Blood pressure 145/88, has history of hypertension. Was given 2 L of IV fluids, Insulin. Urine analysis is negative for any acute findings. This patient is known for noncompliance with her medications. She states she read he has prescriptions and tablets for the same medications for her diabetes and high blood pressure. She was discharged to home. She was encouraged to take her diabetes and high blood pressure medications. Follow-up with her own PCP in the course of this week. Dragon Disclaimer Dragon Disclaimer This electronic medical record was generated, in whole or in part, using a voice recognition dictation system. Departure Departure Impression: Primary Impression: Headache Additional Impressions: Hyperglycemia due to type 2 diabetes mellitus Vertigo Disposition: 01 HOME, SELF-CARE Condition: STABLE Referrals: NO PCP (PCP) follow follow-up with your doctor in one week Patient Instructions: Headache, FAQs, Hyperglycemia, Vertigo, [id number] Additional Instructions: You were evaluated in the emergency room. We put you on medications and, take it as needed for dizziness. You can take Tylenol or Motrin for headache. Please ensure you are taking your diabetes and high blood pressure medications. 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
[2019-01-11 19:12] LABS: BILIRUBIN,URINE NEGATIVE (NEG); CLARITY,URINE CLEAR; COLOR,URINE YELLOW; NITRITE,URINE NEGATIVE (NEG); PROTEIN,URINE NEGATIVE (NEG-TRACE); UROBILINOGEN,URINE 0.2 mg/dL (0.2 mg/dL)
[2019-01-11 19:19] LABS: AMPHETAMINE/METHAMPHETAMINE POS (NEG); BARBITURATES NEG (NEG); BENZODIAZEPINES NEG (NEG); CANNABINOIDS NEG (NEG); COCAINE NEG (NEG); METHADONE NEG (NEG); OPIATES NEG (NEG); PHENCYCLIDINE NEG (NEG)
[2019-01-11 19:22] LABS: SQUAMOUS EPITHELIAL CELL,UR FEW /LPF
[2019-01-11 19:23] LABS: BACTERIA,URINE 0 /HPF (0-FEW); RBC,URINE 0 /HPF (0-2); WBC,URINE >40 /HPF (0-4)
[2019-01-11 19:30] VITALS: BP 119/60
[2019-01-11] MEDS ORDERED: ONDA4TAB12 PO (19:37)
[2019-01-11] MEDS ORDERED: MECL25TA3 PO (19:37)
--- NOTE | 2019-01-12 07:26 | EKG ---
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
== END 2019-01-11 19:45 | disposition home or self-care (01) ==
LOC: ER 16:28
DX: E11.65 Type 2 diabetes mellitus with hyperglycemia (principal); R51 Headache; R42 Dizziness and giddiness; R11.10 Vomiting, unspecified; I10 Essential (primary) hypertension; Z98.890 Other specified postprocedural states
CPT/HCPCS: 36415; 70450; 71045; 80053; 80307; 81001; 82553; 83735; 83880; 84484; 85025; 85610; 93005; 96361; 96374; 96375; 99285; J0780; J1815; J1885; J2405; J7030; J8597

== ENCOUNTER 2019-07-25 16:08 | Emergency (ER) | payer SELFPAY ==
[~2019-07-25] VITALS: Ht 157.5 cm; Wt 90.7 kg
[~2019-07-25 16:08] MED LIST changes: +MECL25TA3 PO; +ONDA4TAB12 PO
[2019-07-25 18:34] LABS: BILIRUBIN,URINE NEGATIVE (NEG); CLARITY,URINE CLEAR; COLOR,URINE YELLOW; NITRITE,URINE NEGATIVE (NEG); PH,URINE 6.5; PROTEIN,URINE NEGATIVE (NEG-TRACE)
[2019-07-25 18:50] LABS: SQUAMOUS EPITHELIAL CELL,UR FEW /LPF
[2019-07-25 18:51] LABS: BACTERIA,URINE MODERATE /HPF (0-FEW); RBC,URINE OCC /HPF (0-2); YEAST,URINE PRESENT /HPF
[2019-07-25 19:10] VITALS: BP 115/69
[2019-07-25] MEDS ORDERED: MICO24CM5 VG (19:10)
--- NOTE | 2019-07-25 19:45 | PHYS DOC ---
Past Medical History Past Medical History: Diabetes-Type II, Hypertension Additional Past Medical Histor: Prescribed PO meds for HTN and DM but has been non compliat with these. Past Surgical History: Alcohol Use: None Drug Use: None Adult General Chief Complaint Chief Complaint: MULTIPLE COMPLAINTS [facility] HPI Patient is a 48 year old insulin-dependent adult onset diabetic who presents with complaints of elevated blood sugar and vaginal itching. Patient has had vaginal itching for the past 2 weeks. Patient does not take insulin or medications on a routine basis and only takes them when she does not feel well. Patient last took insulin last evening. No fever chills, nausea vomiting. No flank pain, no chest pain shortness of breath. Reports occasional dyspnea's. No other acute symptoms or complaints. Patient does not currently have a primary care physician. She states she typically comes to the ER when she does not feel well. She has scheduled appointments to follow up with providers after leaving ED but has not kept appointments. Patient does not currently have health insurance but does have reliable transportation. Translation is assisted by family members..[] Review of Systems Review of Systems ROS as per HPI All other systems were reviewed and found to be within normal limits, except as documented in this note. Allergies Allergies Allergies Coded Allergies Type Severity Reaction Last Updated Verified No Known Drug Allergies 02/24/14 No Physical Exam Physical Exam Constitutional: Well developed, well nourished, no acute distress, non-toxic appearance. [] HENT: Normocephalic, atraumatic, bilateral external ears normal, oropharynx moist, no oral exudates, nose normal. [] Eyes: PERRLA, EOMI, conjunctiva normal, no discharge. [] Neck: Normal range of motion, no tenderness, supple, no stridor. [] Cardiovascular:Heart rate regular rhythm, no murmur [] Lungs & Thorax: Bilateral breath sounds clear to auscultation [] Abdomen: Bowel sounds normal, soft, no tenderness. [] Skin: Warm, dry, no erythema, no rash. [] Back: No tenderness. [] Extremities: No tenderness, no cyanosis, no clubbing, ROM intact, no edema. [] Neurologic: Alert and oriented X 3, normal motor function, normal sensory function, no focal deficits noted. [] Psychologic: Affect normal, judgement normal, mood normal. [] Current Patient Data Vital Signs Vital Signs Date Time Temp Pulse Resp B/P (MAP) Pulse Ox O2 Delivery O2 Flow Rate FiO2 07/25/19 19:10 72 16 115/69 (84) 99 Room Air 07/25/19 17:37 98.2 98.2 Lab Values Laboratory Tests Test 07/25/19 18:20 Urine Collection Type Unknown Urine Color Yellow Urine Clarity Clear Urine pH 6.5 Urine Specific [place] >=1.030 Urine Protein Negative mg/dL (NEG-TRACE) Urine Glucose (UA) >=1000 mg/dL (NEG) Urine Ketones (Stick) Negative mg/dL (NEG) Urine Blood Negative (NEG) Urine Nitrite Negative (NEG) Urine Bilirubin Negative (NEG) Urine Urobilinogen Dipstick 1.0 mg/dL (0.2 mg/dL) Urine Leukocyte Esterase Small (NEG) Urine RBC Occ /HPF (0-2) Urine WBC 1-4 /HPF (0-4) Urine Squamous Epithelial Cells Few /LPF Urine Bacteria Moderate /HPF (0-FEW) Urine Yeast Present /HPF EKG EKG [] Radiology/Procedures Radiology/Procedures [] Course & Med Decision Making Course & Med Decision Making Pertinent Labs and Imaging studies reviewed. (See chart for details) [Patient's blood sugar in the low 300s. She has not taken insulin in the past 24 hours. UA consistent with yeast infection. Recommendations are for medication compliance and treatment of infection. Patient's instructed to contact and follow up with primary care physician. It was explained to the patient that the ER is designed as an emergency service and that it does not have expertise in managing chronic illness such as diabetes. Patient provided a list of low-cost clinics to follow up with. Return precautions reviewed. All questions answered prior to departure.] Dragon Disclaimer Dragon Disclaimer This electronic medical record was generated, in whole or in part, using a voice recognition dictation system. Departure Departure Impression: Primary Impression: Noncompliance Additional Impressions: Yeast infection Hyperglycemia Disposition: HOME/RESIDENCE PRIOR TO ADM Condition: GOOD Patient Instructions: Hyperglycemia, Iltl-od-Aduz, Candidal Vulvovaginitis, [id number] Additional Instructions: Please contact a local primary care physician and schedule a follow up visit in the next 7 days. Take all diabetic medications as prescribed and yeast medication for itching. Your yeast infection will clear up if your blood sugar is not well controlled. Return to the ED if new or worsening symptoms. Scripts Miconazole Nitrate (MONISTAT 3) 24 Gm Cmb.pf.crm 1 APPFUL VG QHS for 3 Days, #24 GM 0 Refills Prov: LIZANDRO LEONARDO DO 07/25/19 Problem Qualifiers LIZANDRO LEONARDO DO Jul 25, 2019 19:45
== END 2019-07-25 19:17 | disposition home or self-care (01) ==
LOC: ER 16:08
DX: E11.65 Type 2 diabetes mellitus with hyperglycemia (principal); B37.9 Candidiasis, unspecified; Z91.19 Patient's noncompliance with other medical treatment and regimen; I10 Essential (primary) hypertension; Z98.890 Other specified postprocedural states
CPT/HCPCS: 81001; 82962; 87086; 87186; 99284

== ENCOUNTER 2020-08-26 00:01 | Emergency (ER) | payer SELFPAY ==
[~2020-08-26] VITALS: Ht 165.1 cm; Wt 79.5 kg
[~2020-08-26 00:01] MED LIST changes: +MECL-75 PO; -MECL25TA3 PO; +MICO24CM5 VG
[2020-08-26 00:42] LABS: BASO # 0.1 x10^3/uL (0.0-0.2); BASO % 1 % (0-3); EOS # 0.1 x10^3/uL (0.0-0.7); EOS % 1 % (0-3); HEMATOCRIT 41.4 % (36.0-47.0); HEMOGLOBIN 14.2 g/dL (12.0-15.5); LYMPH # 3.2 x10^3/uL (1.0-4.8); LYMPH % 34 % (24-48); MEAN CORPUSCULAR HEMOGLOBIN 28 pg (25-35); MEAN CORPUSCULAR HGB CONC 34 g/dL (31-37); MEAN CORPUSCULAR VOLUME 82 fL (79-100); MONO # 0.3 x10^3/uL (0.0-1.1); MONO % 3 % (0-9); NEUT # 5.8 x10^3/uL (1.8-7.7); NEUT % 62 % (31-73); PLATELET COUNT 227 x10^3/uL (140-400); RED BLOOD COUNT 5.05 x10^6/uL (3.50-5.40); RED CELL DISTRIBUTION WIDTH 12.8 % (11.5-14.5); WHITE BLOOD COUNT 9.4 x10^3/uL (4.0-11.0)
--- NOTE | 2020-08-26 00:56 | PHYS DOC ---
Past Medical History Past Medical History: Diabetes-Type II, Hypertension Additional Past Medical Histor: Prescribed PO meds for HTN and DM but has been non compliat with these. Past Surgical History: Smoking Status: Never Smoker Alcohol Use: None Drug Use: None General Adult EDM: Chief Complaint: MULTIPLE COMPLAINTS HPI: HPI: Patient is a 50 year old female past medical history hypertension diabetes presents with a chief complaint of generalized weakness pain in her feet with walking vomiting x2 episodes. Patient states generalized weakness and pain in her feet started 2 days ago. Patient states she vomited x2 today when taking her diabetes medications. On exam patient is alert and orders x4. She denies any headache. She has no focal neurological deficits. Review of Systems: Review of Systems: Constitutional: Denies fever or chills. [] Eyes: Denies change in visual acuity. [] HENT: Denies nasal congestion or sore throat. [] Respiratory: Denies cough or shortness of breath. [] Cardiovascular: Denies chest pain or edema. [] GI: Denies abdominal pain, , bloody stools or diarrhea. [Positive nausea, vomiting] : Denies dysuria. [] Musculoskeletal: Denies back pain or joint pain. [] Integument: Denies rash. [] Neurologic: Denies headache, focal weakness or sensory changes. [Positive g eneralized weakness positive dizziness] Endocrine: Denies polyuria or polydipsia. [] Lymphatic: Denies swollen glands. [] Psychiatric: Denies depression or anxiety. [] Heart Score: Risk Factors: Risk Factors: DM, Current or recent (<one month) smoker, HTN, HLP, family history of CAD, obesity. Risk Scores: Score 0 - 3: 2.5% MACE over next 6 weeks - Discharge Home Score 4 - 6: 20.3% MACE over next 6 weeks - Admit for Clinical Observation Score 7 - 10: 72.7% MACE over next 6 weeks - Early Invasive Strategies Current Medications: Current Medications Medications (Trade) Dose Ordered Sig/Jessica Start Time Stop Time Status Last Admin Dose Admin Labetalol HCl (Normodyne Iv Push) 20 mg 1X ONCE 08/26/20 01:00 08/26/20 01:01 Allergies: Allergies: Allergies Coded Allergies Type Severity Reaction Last Updated Verified No Known Drug Allergies 02/24/14 No Physical Exam: PE: Constitutional: Well developed, well nourished, no acute distress, non-toxic appearance. [] HENT: Normocephalic, atraumatic, bilateral external ears normal, oropharynx moist, no oral exudates, nose normal. [] Eyes: PERRLA, EOMI, conjunctiva normal, no discharge. [] Neck: Normal range of motion, no tenderness, supple, no stridor. [] Cardiovascular:Heart rate regular rhythm, no murmur [] Lungs & Thorax: Bilateral breath sounds clear to auscultation [] Abdomen: Bowel sounds normal, soft, no tenderness, no masses, no pulsatile masses. [] Skin: Warm, dry, no erythema, no rash. [] Back: No tenderness, no CVA tenderness. [] Extremities: No tenderness, no cyanosis, no clubbing, ROM intact, no edema. [] Neurologic: Alert and oriented X 3, normal motor function, normal sensory function, no focal deficits noted. [] Psychologic: Affect normal, judgement normal, mood normal. [] Current Patient Data: Labs: Laboratory Tests Test 08/26/20 00:34 08/26/20 00:42 White Blood Count 9.4 x10^3/uL (4.0-11.0) Red Blood Count 5.05 x10^6/uL (3.50-5.40) Hemoglobin 14.2 g/dL (12.0-15.5) Hematocrit 41.4 % (36.0-47.0) Mean Corpuscular Volume 82 fL (79-100) Mean Corpuscular Hemoglobin 28 pg (25-35) Mean Corpuscular Hemoglobin Concent 34 g/dL (31-37) Red Cell Distribution Width 12.8 % (11.5-14.5) Platelet Count 227 x10^3/uL (140-400) Neutrophils (%) (Auto) 62 % (31-73) Lymphocytes (%) (Auto) 34 % (24-48) Monocytes (%) (Auto) 3 % (0-9) Eosinophils (%) (Auto) 1 % (0-3) Basophils (%) (Auto) 1 % (0-3) Neutrophils # (Auto) 5.8 x10^3/uL (1.8-7.7) Lymphocytes # (Auto) 3.2 x10^3/uL (1.0-4.8) Monocytes # (Auto) 0.3 x10^3/uL (0.0-1.1) Eosinophils # (Auto) 0.1 x10^3/uL (0.0-0.7) Basophils # (Auto) 0.1 x10^3/uL (0.0-0.2) POC Urine HCG, Qualitative Hcg negative (Negative) Laboratory Tests 08/26/20 00:34 Vital Signs: Vital Signs Date Time Temp Pulse Resp B/P (MAP) Pulse Ox O2 Delivery O2 Flow Rate FiO2 08/26/20 00:51 71 158/83 EKG: EKG: EKG performed at 004 6 hours heart rate [address] elevation no ST depression no acute NH [] Radiology/Procedures: Radiology/Procedures: [] Impression: Axial CT images obtained through the head without intravenous contrast. One or more of the following individualized dose reduction techniques were utilized for this examination: 1. Automated exposure control; 2. Adjustment of the mA and/or kV according to patient size; 3. Use of iterative reconstruction technique. FINDINGS: No intracranial hemorrhage. No midline shift. Basal cisterns patent. Ventricles and sulci are unremarkable. No acute osseous abnormality. Orbits and paranasal sinuses unremarkable. IMPRESSION: * No acute intracranial hemorrhage. Electronically signed by: Aris Park MD (08/26/2020 1:26 AM) [id number] Course & Med Decision Making: Course & Med Decision Making Pertinent Labs and Imaging studies reviewed. (See chart for details) [] Patient was evaluated for chief complaint. Work-up consisted of laboratory analysis and radiologic imaging. Results reviewed and discussed with patient. Patient's urine consistent with urinary tract infection. Patient was discharged home with prescription antibiotics. Treatment in the ER included 1 L normal saline. Dragon Disclaimer: Dragon Disclaimer: This electronic medical record was generated, in whole or in part, using a voice recognition dictation system. Departure Departure Impression: Primary Impression: Urinary tract infection Additional Impressions: Generalized weakness Vomiting Disposition: 01 DC HOME SELF CARE/HOMELESS Condition: STABLE Referrals: NO PCP (PCP) Patient Instructions: Urinary Tract Infection, Weakness Scripts Nitrofurantoin Monohyd/M-Cryst (MACROBID 100 MG CAPSULE) 100 Mg Capsule 1 CAP PO BID for 10 Days, #20 CAP 0 Refills Prov: XENIA CHACON DO 08/26/20 XENIA CHACON DO Aug 26, 2020 00:56
[2020-08-26 00:58] LABS: CALCIUM 9.2 mg/dL (8.5-10.1); CREATININE 0.8 mg/dL (0.6-1.0); GFR 76.6; POTASSIUM 3.4 mmol/L (3.5-5.1)
[2020-08-26] MEDS ORDERED: LABETALOL 20 MG/4 ML DISP.SYRIN. IVP ONE (01:00)
[2020-08-26 01:04] LABS: ALBUMIN 3.2 g/dL (3.4-5.0); ALBUMIN/GLOBULIN RATIO 0.7 (1.0-1.7); TOTAL BILIRUBIN 0.3 mg/dL (0.2-1.0); TOTAL PROTEIN 7.9 g/dL (6.4-8.2)
--- NOTE | 2020-08-26 01:28 | RAD ---
INDICATION: Reason: dizzniess n/v / Spl. Instructions: / History: COMPARISON: December 2018 TECHNIQUE: Axial CT images obtained through the head without intravenous contrast. One or more of the following individualized dose reduction techniques were utilized for this examinat ion: 1. Automated exposure control; 2. Adjustment of the mA and/or kV according to patient size; 3 . Use of iterative reconstruction technique. FINDINGS: No intracranial hemorrhage. No midline shift. Basal cisterns patent. Ventricles and sulci are unremarkable. No acute osseous abnormality. Orbits and paranasal sinuses unremarkable. IMPRESSION: * No acute intracranial hemorrhage. Electronically signed by: Aris Park MD (08/26/2020 1:26 AM) [id number]
[2020-08-26 01:33] LABS: BILIRUBIN,URINE NEGATIVE (NEG); CLARITY,URINE CLEAR; COLOR,URINE YELLOW; NITRITE,URINE NEGATIVE (NEG); PROTEIN,URINE NEGATIVE (NEG-TRACE); UROBILINOGEN,URINE 0.2 mg/dL (0.2 mg/dL)
[2020-08-26 01:43] LABS: BACTERIA,URINE MODERATE /HPF (0-FEW); RBC,URINE 0 /HPF (0-2)
[2020-08-26] MEDS ORDERED: IV NORMAL SALINE 1000ML BAG 1,000 ML IV ONE (02:00)
[2020-08-26] MEDS ORDERED: NITR100C62 PO (02:19)
[2020-08-26 03:17] VITALS: BP 135/81
--- NOTE | 2020-08-26 10:09 | EKG ---
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
== END 2020-08-26 03:30 | disposition home or self-care (01) ==
LOC: ER 00:01
DX: N39.0 Urinary tract infection, site not specified (principal); R11.2 Nausea with vomiting, unspecified; R53.1 Weakness; R42 Dizziness and giddiness; E11.9 Type 2 diabetes mellitus without complications; I10 Essential (primary) hypertension; Z98.890 Other specified postprocedural states
CPT/HCPCS: 36415; 70450; 80053; 81001; 81025; 84484; 85025; 87086; 93005; 96360; 99285; J7030